=== PATIENT | female | born 1950 | race Caucasian/White ===

== ENCOUNTER 2021-11-01 16:09 | Observation (INO) ==
[2021-11-01] MEDS ORDERED: Aspirin 81 MG TAB.CHEW ONE (20:35)
[2021-11-01] MEDS ORDERED: Aspirin 81 MG TAB.CHEW PO ONE (20:39)
[2021-11-02] MEDS ORDERED: Ondansetron 4 MG/2 ML VIAL IVP PRN (02:40)
[2021-11-02] MEDS ORDERED: Acetaminophen 325 MG TABLET PO PRN (02:40)
[2021-11-02] MEDS ORDERED: Naloxone 0.4 MG/ML INJ IVP PRN (02:40)
[2021-11-02] MEDS ORDERED: Melatonin 3 MG TABLET PO PRN (02:40)
[2021-11-02 04:04] LABS: Prothrombin Time 11.1 Seconds (9.4-12.1)
[2021-11-02 04:05] LABS: Basophils % 0.4 %; Eosinophils % 0.6 %; Hematocrit 43.9 % (35.3-44.9); Hemoglobin 14.5 g/dL (11.5-15.4); Immature Granulocytes % 0.3 % (0-4); Lymphocytes # 1.2 K/mcL (0.6-4.6); Lymphocytes % 16.8 %; Mean Corpuscular Hemoglobin 30.8 pg (28.0-33.3); Mean Corpuscular Volume 93.2 fL (83.0-100.0); Mean Platelet Volume 10.1 fL (9.4-12.4); Monocytes # 0.3 K/mcL (0.0-1.3); Monocytes % 4.7 %; Neutrophils # 5.5 K/mcL (1.6-8.9); Platelet Count 186 K/mcL (140-400); Red Blood Count 4.71 M/mcL (3.82-4.97); Red Cell Distribution Width 13.6 % (11.5-14.5); Segmented Neutrophils % 77.2 %; White Blood Count 7.1 K/mcL (4.3-11.1)
[2021-11-02] MEDS ORDERED: Iopamidol - 370 500 ML MLS IVP ONE (04:09)
[2021-11-02 04:54] LABS: Amphetamine Screen,Urine Negative ng/mL (Cutoff=1000); Barbiturate Screen,Urine Negative ng/mL (Cutoff=200)
[2021-11-02 04:55] LABS: Alanine Aminotransferase 12 Units/L (7-52); Alkaline Phosphatase 85 Units/L (34-104); Aspartate Amino Transferase 18 Units/L (13-39); BUN/Creatinine Ratio 7 (6-26); Benzodiazepines Screen,Urine Negative ng/mL (Cutoff=300); Bilirubin,Direct 0.1 mg/dL (0.0-0.2); Bilirubin,Indirect 0.7 mg/dL (0.0-1.0); Bilirubin,Total 0.8 mg/dL (0.3-1.0); Blood Urea Nitrogen 9 mg/dL (8-23); Calcium 9.4 mg/dL (8.6-10.3); Cannabinoid Screen,Urine Negative ng/mL (Cutoff = 50); Carbon Dioxide 29 mEq/L (23-29); Chloride 103 mEq/L (98-107); Cocaine Screen,Urine Negative ng/mL (Cutoff= 300); Glucose 191 mg/dL (70-105); Opiate Screen,Urine Negative ng/mL (Cutoff=300); Osmolality,Calculated 294 (280-300); Phencyclidine Screen,Urine Negative ng/mL (Cutoff=25); Potassium 3.2 mEq/L (3.5-5.1); Sodium 140 mEq/L (136-145)
[2021-11-02 04:56] LABS: Albumin 4.5 g/dL (3.5-5.7); Albumin/Globulin Ratio 1.6 (1.1-2.2); Ethanol < 10 mg/dL (Less than 10); Globulin 2.8 g/dL (2.4-3.5); Total Protein 7.3 g/dL (6.4-8.9)
[2021-11-02 05:05] LABS: Prothrombin Time 10.9 Seconds (9.4-12.1)
[2021-11-02 05:08] LABS: Activated Partial Thrombo Time 33.3 Seconds (26.0-36.0); Hematocrit 40.4 % (35.3-44.9); Hemoglobin 13.4 g/dL (11.5-15.4); Mean Corpuscular HGB Conc 33.2 g/dL (31.6-35.5); Mean Corpuscular Hemoglobin 31.2 pg (28.0-33.3); Mean Corpuscular Volume 94.2 fL (83.0-100.0); Mean Platelet Volume 10.5 fL (9.4-12.4); Platelet Count 168 K/mcL (140-400); Red Blood Count 4.29 M/mcL (3.82-4.97); Red Cell Distribution Width 13.8 % (11.5-14.5); White Blood Count 7.2 K/mcL (4.3-11.1)
[2021-11-02 05:11] LABS: Estimated Average Glucose 108 mg/dl; Hemoglobin A1C 5.4 %
[2021-11-02 05:24] LABS: Albumin 4.1 g/dL (3.5-5.7); Albumin/Globulin Ratio 1.8 (1.1-2.2); Bilirubin,Total 0.6 mg/dL (0.3-1.0); Calcium 9.1 mg/dL (8.6-10.3); Chol/HDL Ratio 5.9 (0-4.9); Globulin 2.3 g/dL (2.4-3.5); Magnesium 2.3 mg/dL (1.6-2.6); Phosphorous 3.4 mg/dL (2.7-4.5); Potassium 3.2 mEq/L (3.5-5.1); Total Protein 6.4 g/dL (6.4-8.9)
[2021-11-02 05:41] LABS: Folate 3.4 ng/mL (3.0-16.0)
[2021-11-02 05:43] LABS: Bilirubin,Urine Negative (Negative); Blood,Urine Negative (Negative); Clarity,Urine Clear (Clear); Color,Urine Colorless (Yellow); Glucose,Urine (UA) 50 mg/dL (Normal); Ketones,Urine Negative (Negative); Leukocyte Esterase,Urine Trace (Negative); Nitrite,Urine Negative (Negative); PH,Urine 6.5 pH Units (5.0-8.0); Protein,Urine Negative (Neg-Trace); RBC,Urine 0-3 per hpf (0-3); Squamous Epithelial Cell,Urine Few per hpf (None-Few); Urobilinogen,Urine Normal (Normal); WBC,Urine 0-3 per hpf (0-3)
[2021-11-02 05:44] LABS: Mucus,Urine Few per lpf (None-Few)
[2021-11-02] MEDS ORDERED: *HR* Heparin 5,000 UNIT/ML VIAL SQ SCH (06:00)
[2021-11-02] MEDS ORDERED: Aspirin Enteric Coated 81 MG Tablet PO SCH (09:00)
[2021-11-02] MEDS ORDERED: Cyanocobalamin (B-12) 1,000 MCG/ML VIAL SQ ONE (12:54)
[2021-11-03 06:58] VITALS: BP 103/67; PULSE 69; TEMP 98.7; O2SAT 96
[2021-11-03] MEDS ORDERED: Aspirin 325 MG TABLET PO SCH (09:00)
== END 2021-11-03 14:45 | disposition home or self-care (01) ==
LOC: EMEROOARM 16:09 → 3BNU 16:09 → SUATTDRO 11-02 02:25
PROVIDERS: ADMIT Internal Medicine; ATTEND Internal Medicine